=== PATIENT | female | born 1960 | race African-American/Black ===

== ENCOUNTER 2024-09-15 23:17 | Emergency (ER) | payer MEDICARE, MEDICAID ==
[~2024-09-15] VITALS: Ht 175.3 cm; Wt 85.0 kg
[2024-09-15 23:28] VITALS: TEMP 98
[2024-09-16 02:21] VITALS: BP 121/80; PULSE 77; RESP 20; O2SAT 98
[2024-09-16] MEDS: TraMADol HCL 50 MG TABLET PO ONE (03:05)
[2024-09-16] MEDS ORDERED: TRAM50TA5 PO (04:45)
== END 2024-09-16 06:09 | disposition home or self-care (01) ==
LOC: EMS 23:19
DX: S80.02XA Contusion of left knee, initial encounter (principal); S50.01XA Contusion of right elbow, initial encounter; M25.512 Pain in left shoulder; J45.909 Unspecified asthma, uncomplicated; E11.9 Type 2 diabetes mellitus without complications; F12.90 Cannabis use, unspecified, uncomplicated; F17.210 Nicotine dependence, cigarettes, uncomplicated; Z86.73 Personal history of transient ischemic attack (TIA), and cerebral infarction without residual deficits; W01.0XXA Fall on same level from slipping, tripping and stumbling without subsequent striking against object, initial encounter; Y93.89 Activity, other specified; Y92.89 Other specified places as the place of occurrence of the external cause; Y99.8 Other external cause status
CPT/HCPCS: 99284; 73030-TC; 73070-TC; 73562-TC; Z7502; Z7610